=== PATIENT | male | born 1990 | race American Indian/Alaskan Native ===

== ENCOUNTER 2017-12-10 09:09 | Emergency (ER) | payer SELFPAY ==
[2017-12-10 09:16] VITALS: BP 134/88
--- NOTE | 2017-12-10 09:41 | Emergency Department Report ---
Upper Extremity - HPI Chief Complaint: Extremity Injury, Upper Stated Complaint: SWOLLEN WRIST/BACK PAIN Time Seen by Provider: 12/10/17 09:39 Upper Extremity: Left Wrist (pain from fall yesterday), Left Hand (from fall yesterday) Occurred When: 1 Day Mechanism: Fall Severity: moderate (5/10) Symptoms: Yes Pain with Movement (hand and wrist), Yes Limited Range of Movement (left hand), Yes Swelling (left hand), No Deformity, No Numbness, No Weakness, No Bruising/Ecchymosis, No Laceration or Abrasion Other History: This is a 27-year-old male here with his family reports that he injured his left hand and wrist yesterday after falling in the bathroom and tried to brace himself and he hit his left hand and wrist on part of the toilet bowl. Pain is 5 out of 10 and he can worsen movement better with rest. Denies taking any pain medication. He has complaint of pain in his lower back which is 2 out of 10. Denies any loss of bowel or bladder function or any numbness or tingling to extremities. Denies any headache, head injury or neck pain. ED Review of Systems ROS: Stated complaint: SWOLLEN WRIST/BACK PAIN Other details as noted in HPI Constitutional: denies: chills, fever Eyes: denies: eye pain, vision change ENT: denies: throat pain, epistaxis Respiratory: denies: cough, shortness of breath, SOB with exertion, SOB at rest , stridor, wheezing Cardiovascular: denies: chest pain, palpitations, edema, syncope Gastrointestinal: denies: abdominal pain, nausea, diarrhea Musculoskeletal: denies: back pain, joint swelling, arthralgia Skin: denies: rash, lesions Neurological: denies: headache, weakness, numbness, paresthesias, confusion, abnormal gait, vertigo ED Past Medical Hx - Past Medical History Previous Medical History?: No - Surgical History Past Surgical History?: No - Family History Family history: hypertension - Social History Smoking Status: Current Every Day Smoker Substance Use Type: None - Medications Home Medications: Home Medications Medication Instructions Recorded Confirmed Last Taken Type Ibuprofen [Motrin 600 MG tab] 600 mg PO Q8H PRN #15 tablet 12/10/17 Unknown Rx Upper Extremity Exam - Exam General: Vital signs noted. No distress. Alert and acting appropriately. This is a 27-year-old male well-nourished well-developed in no acute distress. Head and Torso: No HEENT Abnormality (normal exam), No Neck Tenderness (no C- spine tenderness), No Chest/Lungs Abnormality (no chest wall tenderness. CTAB) , No Abdominal Tenderness, No Back Tenderness (no vertebral or paraspinal tenderness) Shoulder Exam: Yes Normal Range of Motion in Shoulder, No Shoulder Tenderness, No Clavicle Tenderness, No Shoulder Deformity, No AC Joint Tenderness Arm Exam: No Arm/Humerus Tenderness, No Arm Deformity Elbow: Yes Normal Range of Motion in Elbow, No Elbow Tenderness, No Elbow Deformity Forearm: No Forearm Tenderness, No Forearm Deformity, No Pain with Pronation, No Pain with Supination Wrist: Yes Wrist Tenderness (both radial and ulnar side), Yes Normal ROM in Wrist (reports some pain with range of motion), No Wrist Deformity, No Snuffbox Tenderness, No Pain with Axial Thumb Compression Hand: Yes Hand Tenderness (dorsal aspect distal metacarpal bones), Yes Normal ROM in Digit(s) (pain with range of motion but he has no restriction in movement ), No Hand Deformity, No Digit Tenderness, No Digit(s) Deformity, No Tendon Dysfunction CMS Exam: Yes Normal Distal Pulses (+2 radial and ulnar pulses bilateral), Yes Normal Capillary Refill (3 seconds), Yes Normal Distal Sensation (patient with good color, sensation, movement and temperature to upper and lower extremities.) , No Broken Skin ED Course Vital Signs 12/10/17 09:12 Temperature 98.7 F Pulse Rate 75 Respiratory 17 Rate Blood Pressure 134/88 O2 Sat by Pulse 100 Oximetry - Reevaluation(s) Reevaluation #1: 12/10/17 11:10 History received hydrocodone 1 tablet 5/325 mg by mouth and Motrin 800 mg by mouth and emergency room with complete relief of pain. Reevaluation #2: 12/10/17 11:51 Patient stable, see procedure note for details on splinting of left hand and wrist. - Orthopedic Splinting/Casting Injury #1 Side: left Upper Extremity Injury Location: wrist Upper Extremity Immobilizer: wrist splint ED Medical Decision Making - Radiology Data Radiology results: report reviewed X-ray three-view hand and wrist, left dictated by radiologist and report reviewed by myself. Please see detail below Patient: MARQUIS JASON NEVAREZ MR#: [id number] : 1990 Acct:[id number] Age/Sex: 27 / M ADM Date: 12/10/17 Loc: ED Attending Dr: Ordering Physician: ABBI MEDEL Date of Service: 12/10/17 Procedure(s): XR wrist 3+V LT Accession Number(s): [id number] cc: ABBI MEDEL Fluoro Time In Minutes: LEFT WRIST, 4 views: HISTORY: Pain and swelling. Routine views demonstrate the carpal bones to be well mineralized with well preserved bony mineralization and interosseous joint spaces. The carpal and adjacent articular bones have normal contours. The surrounding soft tissues are unremarkable. IMPRESSION: Normal study. Transcribed By: TTR Dictated By: EMMETT PITTS JR, MD Electronically Authenticated By: EMMETT PITTS JR, MD Signed Date/Time: 12/10/171045 DD/ 45 TD/TT: 12/10/17 [address] [address] XRay Report Signed Patient: MARQUIS JASON NEVAREZ MR#: [id number] : 1990 Acct:[id number] Age/Sex: 27 / M ADM Date: 12/10/17 Loc: ED Attending Dr: Ordering Physician: ABBI MEDEL Date of Service: 12/10/17 Procedure(s): XR hand 3+V LT Accession Number(s): [id number] cc: ABBI MEDEL Fluoro Time In Minutes: LEFT HAND, 3 views: History: Pain and swelling. The bony architecture is intact. Bony alignment is normal. No soft tissue abnormalities are seen. The joint spaces appear preserved. IMPRESSION: Normal left hand. Transcribed By: TTR Dictated By: EMMETT PITTS JR, MD Electronically Authenticated By: EMMETT PITTS JR, MD Signed Date/Time: 12/10/171047 DD/ 46 TD/TT: 12/10/171047 - Medical Decision Making This is a 27-year-old male who reported injuries and yesterday and having pain and swelling to left hand and wrist. Diagnostics: x-ray of left hand and left wrist reveals no acute fracture or dislocation. Please see radiologist's section for details and report Assessment/plan 1: Arthralgia multiple sites left hand and wrist status post injury: Patient given [place] 5/325 one tablet by mouth and Motrin 800 mg. Emergency room for pain which relieved this pain. 2: Left wrist sprain-Velcro hand and wrist splints applied. Rice therapy explained. I discussed with patient his diagnosis and treatment positive with nondistended. Patient and vital signs stable he is afebrile. His pain is better after given pain medication. I explained to him Rice therapy and utilization of Velcro splint. He voiced understanding and patient to follow-up with orthopedic doctor in 2-3 days status post wrist and hand injury with sprain. Discharged with prescription for Motrin. - Differential Diagnosis FX vs dislocation, strain, sprain, musculoskeletal pain Critical care attestation.: If time is entered above; I have spent that time in minutes in the direct care of this critically ill patient, excluding procedure time. ED Disposition Clinical Impression: Arthralgia of multiple sites Left wrist injury Qualifiers: Encounter type: initial encounter Qualified Code(s): S69.92XA - Unspecified injury of left wrist, hand and finger(s), initial encounter Wrist sprain Qualifiers: Encounter type: initial encounter Laterality: left Qualified Code(s): S63.502A - Unspecified sprain of left wrist, initial encounter Disposition: DC- TO HOME OR SELFCARE Is pt being admited?: No Does the pt Need Aspirin: No Condition: Stable Instructions: Wrist Injury (ED), RICE Therapy (ED), Wrist Sprain (ED) Additional Instructions: Please follow up with primary care as recommended Increase fluid intake Take medication as prescribed . Referred to discharge instruction in Rice therapy. These follow-up with orthopedic doctor as instructed. Please keep affected area clean and dry Prescriptions: Ibuprofen [Motrin 600 MG tab] 600 mg PO Q8H PRN #15 tablet PRN Reason: Pain Referrals: PRIMARY CARE, [Primary Care Provider] - 2-3 Days ISMAEL NARANJO MD [Staff Physician] - 2-3 Days Forms: Work/School Release Form(ED)
[2017-12-10] MEDS ORDERED: MOTRIN PO ONE (09:43)
[2017-12-10] MEDS ORDERED: NORCO 5/325 PO ONE (09:43)
--- NOTE | 2017-12-10 10:47 | XRay Report ---
LEFT WRIST, 4 views: HISTORY: Pain and swelling. Routine views demonstrate the carpal bones to be well mineralized with well preserved bony mineralization and interosseous joint spaces. The carpal and adjacent articular bones have normal contours. The surrounding soft tissues are unremarkable. IMPRESSION: Normal study.
--- NOTE | 2017-12-10 10:49 | XRay Report ---
LEFT HAND, 3 views: History: Pain and swelling. The bony architecture is intact. Bony alignment is normal. No soft tissue abnormalities are seen. The joint spaces appear preserved. IMPRESSION: Normal left hand.
== END 2017-12-10 11:58 | disposition home or self-care (01) ==
LOC: ED 09:09
DX: S63.502A Unspecified sprain of left wrist, initial encounter (principal); M54.5 Low back pain; F17.200 Nicotine dependence, unspecified, uncomplicated; Z88.6 Allergy status to analgesic agent; W19.XXXA Unspecified fall, initial encounter; Y93.89 Activity, other specified; Y92.002 Bathroom of unspecified non-institutional (private) residence as the place of occurrence of the external cause; Y99.8 Other external cause status

== ENCOUNTER 2017-12-11 22:05 | Emergency (ER) | payer SELFPAY ==
[2017-12-11 23:29] VITALS: BP 136/84
--- NOTE | 2017-12-12 01:41 | Emergency Department Report ---
Upper Extremity - HPI Chief Complaint: Extremity Injury, Upper Stated Complaint: LEFT WRIST SWOLLEN Time Seen by Provider: 12/12/17 01:30 Upper Extremity: Left Wrist Occurred When: 2 Days Symptoms: Yes Pain with Movement, Yes Swelling, No Deformity, No Limited Range of Movement, No Numbness, No Weakness, No Bruising/Ecchymosis, No Laceration or Abrasion Other History: 27-year-old -[place] male that was seen here on 2017 comes in for left wrist swelling and pain. Patient reports that wearing the Velcro splint is not helping. Patient reports when it's tighten his fingers get numb when is loose his arm veins all around the place. Patient also reports that ibuprofen makes him feel dizzy and makes his stomach ache. Patient does admit that he did not eat prior to taking the ibuprofen. Patient admits that he did not eat prior to taking the medication. Patient has an allergy to acetaminophen. ED Review of Systems ROS: Stated complaint: LEFT WRIST SWOLLEN Other details as noted in HPI Comment: All other systems reviewed and negative Musculoskeletal: arthralgia (left wrists) ED Past Medical Hx - Past Medical History Previous Medical History?: No - Surgical History Past Surgical History?: No - Social History Smoking Status: Never Smoker Substance Use Type: None - Medications Home Medications: Home Medications Medication Instructions Recorded Confirmed Last Taken Type Ibuprofen [Motrin 600 MG tab] 600 mg PO Q8H PRN #15 tablet 12/10/17 Unknown Rx Upper Extremity Exam - Exam General: Vital signs noted. No distress. Alert and acting appropriately. Arm Exam: No Arm/Humerus Tenderness, No Arm Deformity Elbow: No Elbow Tenderness, No Normal Range of Motion in Elbow, No Elbow Deformity Wrist: Yes Wrist Tenderness, Yes Normal ROM in Wrist, No Wrist Deformity, No Snuffbox Tenderness, No Pain with Axial Thumb Compression Hand: Yes Hand Tenderness, Yes Normal ROM in Digit(s), No Hand Deformity, No Digit Tenderness, No Digit(s) Deformity, No Tendon Dysfunction CMS Exam: Yes Normal Distal Pulses, Yes Normal Capillary Refill, Yes Normal Distal Sensation, No Broken Skin ED Course Vital Signs 12/11/17 23:23 Temperature 98.4 F Pulse Rate 63 Respiratory 18 Rate Blood Pressure 136/84 O2 Sat by Pulse 98 Oximetry ED Medical Decision Making - Medical Decision Making Patient has been evaluated by this provider in fast track. Discussed with patient that he needs to eat when taking the ibuprofen. Discussed the patient I will place an OCL with an Jonathan bandage wrap. Discussed with patient he needs to elevate the left wrists apply ice. Please follow up with orthopedist if the pain continues or gets worse. Critical care attestation.: If time is entered above; I have spent that time in minutes in the direct care of this critically ill patient, excluding procedure time. ED Disposition Clinical Impression: Left wrist injury Qualifiers: Encounter type: sequela Qualified Code(s): S69.92XS - Unspecified injury of left wrist, hand and finger(s), sequela Wrist sprain Qualifiers: Encounter type: sequela Laterality: left Qualified Code(s): S63.502S - Unspecified sprain of left wrist, sequela Disposition: TO HOME OR SELFCARE Is pt being admited?: No Does the pt Need Aspirin: No Condition: Stable Instructions: Wrist Injury (ED), Wrist Sprain (ED) Additional Instructions: Please take ibuprofen as prescribed. It is very important for you to eat prior to taking medication. Please continue wearing the volar OCL. It's important for you to follow-up with orthopedist. It is also important for you to elevate and apply ice. Referrals: PRIMARY CAREMD [Primary Care Provider] - 3-5 Days ISMAEL NARANJO MD [Staff Physician] - 3-5 Days Forms: Work/School Release Form(ED), Accompanied Note
== END 2017-12-12 01:55 | disposition home or self-care (01) ==
LOC: ED 22:05
DX: S63.502A Unspecified sprain of left wrist, initial encounter (principal); Z88.6 Allergy status to analgesic agent; X58.XXXA Exposure to other specified factors, initial encounter; Y93.89 Activity, other specified; Y92.89 Other specified places as the place of occurrence of the external cause; Y99.8 Other external cause status
CPT/HCPCS: 99283